=== PATIENT | female | born 1980 | race Caucasian/White ===

== ENCOUNTER 2017-04-14 21:53 | Emergency (ER) | payer BC, OTHER ==
[~2017-04-14] VITALS: Ht 165.1 cm; Wt 104.3 kg
[~2017-04-14 21:53] MED LIST: ACETAMINOPHEN-1 EAC1 PO; ADULT LOW DOSE81 MG PO; AMITRIPTYLINE H25 M2; ATIVAN1 MG PO; BENTYL20 MG PO; CIPRO500 MG PO; CIPROFLOXACIN500 M1 PO; CLONAZEPAM 0.50.5 M1; DEXILANT60 MG PO; FLAGYL500 MG PO; FLEXERIL PO; FLOMAX PO; GABAPENTIN 100100 MG PO; HYDROCODONE-AP1 EAC6 PO; HYDROCODONE-APA1 TA1 PO; IBUPROFEN 800800 M1 PO; IBUPROFEN 800800 MG PO; LAMICTAL XR50 MG; LEVOTHYROXINE 0.1 MG PO; LEVOTHYROXINE0.05 MG; LYRICA 75 MG CA75 MG; MEDROL4 MG PO; MOBIC15 MG PO; MULTIVITAMINS1 EAC7 PO; NAPROSYN500 MG PO; NORCO 5-325 TA1 EACH PO; NORFLEX100 MG PO; OMEPRAZOLE 20 M20 MG; OMEPRAZOLE40 MG; ONDANSETRON HCL4 M2 PO; PERCOCET 10-321 EACH PO; PERCOCET 5-3251 EACH PO; PHENERGAN 25 MG25 M1 PO; PHENERGAN 25 MG25 MG PO; PRILOSEC 10MG C10 M1 PO; PROZAC10 MG; PROZAC20 M1 PO; PROZAC40 MG PO; ROBAXIN500 MG PO; TRAMADOL 50 MG50 MG PO; ULTRAM 50MG TAB50 MG PO; VICODIN 5-5001 EACH PO; VOLTAREN GEL 1100 G2 TOP; ZANAFLEX4 MG PO; ZOFRAN ODT4 MG PO; ZOFRAN4 MG PO; ZONEGRAN100 MG
[2017-04-14 21:59] VITALS: BP 123/80
[2017-04-14] MEDS ORDERED: TRAMADOL 50 MG50 MG PO (22:13)
[2017-04-14] MEDS ORDERED: IBUPROFEN 800800 M1 PO (22:13)
[2017-04-14] MEDS ORDERED: SSD CREAM 1% 5050 GM TOP (22:13)
== END 2017-04-14 22:30 | disposition home or self-care (01) ==
LOC: M.ERS 21:53
DX: T20.07XA Burn of unspecified degree of neck, initial encounter (principal); T31.0 Burns involving less than 10% of body surface; F41.0 Panic disorder [episodic paroxysmal anxiety]; K21.9 Gastro-esophageal reflux disease without esophagitis; G62.9 Polyneuropathy, unspecified; Z90.49 Acquired absence of other specified parts of digestive tract; Z87.442 Personal history of urinary calculi; Z88.1 Allergy status to other antibiotic agents; Z88.8 Allergy status to other drugs, medicaments and biological substances; Z77.22 Contact with and (suspected) exposure to environmental tobacco smoke (acute) (chronic); X16.XXXA Contact with hot heating appliances, radiators and pipes, initial encounter; Y93.89 Activity, other specified; Y92.89 Other specified places as the place of occurrence of the external cause; Y99.8 Other external cause status

== ENCOUNTER → 2017-12-08 | Outpatient (CLI) | payer BC, OTHER ==
[~2017-12-08] MED LIST changes: +FENOFIBRATE160 MG PO; +QUDEXY XR100 MG PO; +ROBAXIN 750 MG750 M1 PO; +SSD CREAM 1% 5050 GM TOP
== END ==
LOC: M.RAD 10:44
DX: M25.511 Pain in right shoulder (principal); M25.551 Pain in right hip; R10.11 Right upper quadrant pain; R07.9 Chest pain, unspecified; M54.2 Cervicalgia; M43.22 Fusion of spine, cervical region; V89.2XXA Person injured in unspecified motor-vehicle accident, traffic, initial encounter; Z90.49 Acquired absence of other specified parts of digestive tract; Z72.89 Other problems related to lifestyle; Z88.8 Allergy status to other drugs, medicaments and biological substances

== ENCOUNTER 2018-01-23 16:05 | Emergency (ER) | payer BC, OTHER ==
[~2018-01-23] VITALS: Ht 165.1 cm; Wt 111.1 kg
[~2018-01-23 16:05] MED LIST changes: -FENOFIBRATE160 MG PO; -QUDEXY XR100 MG PO; -ROBAXIN 750 MG750 M1 PO
[2018-01-23] MEDS ORDERED: QUDEXY XR100 MG PO (16:23)
[2018-01-23] MEDS ORDERED: FENOFIBRATE160 MG PO (16:23)
[2018-01-23] MEDS ORDERED: ROBAXIN 750 MG750 M1 PO (16:58)
[2018-01-23 17:07] VITALS: BP 149/89
== END 2018-01-23 17:08 | disposition home or self-care (01) ==
LOC: M.ERS 16:05
DX: S46.911A Strain of unspecified muscle, fascia and tendon at shoulder and upper arm level, right arm, initial encounter (principal); X58.XXXA Exposure to other specified factors, initial encounter; Y93.89 Activity, other specified; Y92.89 Other specified places as the place of occurrence of the external cause; Y99.8 Other external cause status; K21.9 Gastro-esophageal reflux disease without esophagitis; Z90.49 Acquired absence of other specified parts of digestive tract; Z77.22 Contact with and (suspected) exposure to environmental tobacco smoke (acute) (chronic); Z88.1 Allergy status to other antibiotic agents; Z88.8 Allergy status to other drugs, medicaments and biological substances

== ENCOUNTER 2019-08-20 19:27 | Emergency (ER) | payer OTHER ==
[~2019-08-20] VITALS: Ht 165.1 cm; Wt 108.9 kg
[~2019-08-20 19:27] MED LIST changes: +FENOFIBRATE160 MG PO; +QUDEXY XR100 MG PO; +ROBAXIN 750 MG750 M1 PO
[2019-08-20] MEDS ORDERED: SEVELLA PO (20:07)
[2019-08-20] MEDS ORDERED: TRAMADOL 50 MG50 MG PO (21:42)
[2019-08-20 22:02] VITALS: BP 135/101
== END 2019-08-20 22:03 | disposition home or self-care (01) ==
LOC: M.ERS 19:27
DX: S93.602A Unspecified sprain of left foot, initial encounter (principal); K21.9 Gastro-esophageal reflux disease without esophagitis; F41.0 Panic disorder [episodic paroxysmal anxiety]; Z90.89 Acquired absence of other organs; Z90.49 Acquired absence of other specified parts of digestive tract; Z87.442 Personal history of urinary calculi; Z88.1 Allergy status to other antibiotic agents; Z88.8 Allergy status to other drugs, medicaments and biological substances; W10.9XXA Fall (on) (from) unspecified stairs and steps, initial encounter; Y93.01 Activity, walking, marching and hiking; Y92.89 Other specified places as the place of occurrence of the external cause; Y99.8 Other external cause status

== ENCOUNTER → 2019-09-13 | Outpatient (CLI) | payer OTHER ==
[~2019-09-13] MED LIST changes: +SEVELLA PO
[2019-09-13 10:54] LABS: ABSOLUTE BASOPHILS 0.1 thou/uL (0.0-0.2); ABSOLUTE EOSINOPHILS 0.3 thou/uL (0.0-0.7); ABSOLUTE LYMPHOCYTES 2.6 thou/uL (0.8-5.3); ABSOLUTE MONOCYTES 0.4 thou/uL (0.0-1.2); ABSOLUTE NEUTROPHILS 4.1 thou/uL (1.6-8.1); EOSINOPHILS 3.4 %; HEMATOCRIT 42.1 % (37.0-47.0); HEMOGLOBIN 14.5 gm/dL (12.0-15.0); LYMPHOCYTES 35.4 %; MCHC 34.5 g/dL (28.0-37.0); MONOCYTES 5.6 %; MPV 8.3 fl. (7.2-11.1); NUCLEATED RBCS 0 /100WBC; PLATELET COUNT* 334 thou/uL (150-400); POLYS 54.6 %; RBC 4.68 mil/uL (4.20-5.00); RDW-CV 12.7 % (10.5-14.5); WBC 7.5 thou/uL (4.0-11.0)
[2019-09-13 11:03] LABS: ALBUMIN 4.3 g/dL (3.4-5.0); CALCIUM 9.1 mg/dL (8.5-10.1); DIRECT BILIRUBIN 0.1 mg/dL (<0.1-0.3); POTASSIUM 3.9 mmol/L (3.5-5.1); TOTAL BILIRUBIN 0.4 mg/dL (<0.1-1.0)
== END ==
LOC: M.ULTRA 09:59
PROVIDERS: ATTEND Internal Medicine
DX: K76.0 Fatty (change of) liver, not elsewhere classified (principal); Z88.1 Allergy status to other antibiotic agents

== ENCOUNTER 2019-12-22 17:48 | Emergency (ER) | payer OTHER ==
[~2019-12-22] VITALS: Ht 152.4 cm; Wt 101.2 kg
[2019-12-22] MEDS ORDERED: NORCO 5-325 TA1 EAC2 PO (20:37)
[2019-12-22] MEDS ORDERED: IBUPROFEN 800800 M1 PO (20:37)
[2019-12-22 21:02] VITALS: BP 129/91
== END 2019-12-22 21:03 | disposition home or self-care (01) ==
LOC: M.ERS 17:48
DX: S63.591A Other specified sprain of right wrist, initial encounter (principal); M25.521 Pain in right elbow; K21.9 Gastro-esophageal reflux disease without esophagitis; G62.9 Polyneuropathy, unspecified; Z88.1 Allergy status to other antibiotic agents; Z77.22 Contact with and (suspected) exposure to environmental tobacco smoke (acute) (chronic); Z90.49 Acquired absence of other specified parts of digestive tract; Z87.442 Personal history of urinary calculi; W18.39XA Other fall on same level, initial encounter; Y93.89 Activity, other specified; Y92.89 Other specified places as the place of occurrence of the external cause; Y99.8 Other external cause status

== ENCOUNTER 2020-03-09 18:33 | Emergency (ER) | payer OTHER ==
[~2020-03-09] VITALS: Ht 165.1 cm; Wt 104.3 kg
[~2020-03-09 18:33] MED LIST changes: +NORCO 5-325 TA1 EAC2 PO
[2020-03-09] MEDS ORDERED: PROZAC40 MG PO (18:43)
[2020-03-09 18:52] LABS: URINE BILIRUBIN NEGATIVE (Negative); URINE BLOOD 1+ (Negative); URINE CLARITY CLEAR; URINE COLOR YELLOW; URINE GLUCOSE-RANDOM NEGATIVE (Negative); URINE KETONES NEGATIVE (Negative); URINE LEUKOCYTES-REFLEX NEGATIVE (Negative); URINE NITRITE-REFLEX NEGATIVE (Negative); URINE PROTEIN NEGATIVE (Negative); URINE UROBILINOGEN 0.2 E.U./dl (0.2-1.0)
[2020-03-09 18:59] LABS: ABSOLUTE BASOPHILS 0.1 thou/uL (0.0-0.2); ABSOLUTE EOSINOPHILS 0.3 thou/uL (0.0-0.7); ABSOLUTE MONOCYTES 0.5 thou/uL (0.0-1.2); ABSOLUTE NEUTROPHILS 4.4 thou/uL (1.6-8.1); BASOPHILS 0.7 %; EOSINOPHILS 3.6 %; HEMATOCRIT 40.5 % (37.0-47.0); HEMOGLOBIN 13.7 gm/dL (12.0-15.0); LYMPHOCYTES 36.4 %; MCH 29.7 pg (26.0-34.0); MCHC 33.8 g/dL (28.0-37.0); MCV 87.9 fL (80.0-100.0); MONOCYTES 6.4 %; MPV 7.7 fl. (7.2-11.1); NUCLEATED RBCS 0 /100WBC; PLATELET COUNT* 312 thou/uL (150-400); POLYS 52.9 %; RDW-CV 12.9 % (10.5-14.5); WBC 8.3 thou/uL (4.0-11.0)
[2020-03-09 19:00] LABS: SQUAMOUS >10 Many /LPF (0-3)
[2020-03-09 19:01] LABS: URINE RBC 0-2 Rare /HPF (0-2); URINE WBC-REFLEX 0-5 Rare /HPF (0-5)
[2020-03-09 19:02] LABS: BACTERIA-REFLEX 1-9 Few /HPF (None Seen); CASTS None Seen /LPF (None Seen); CRYSTALS None Seen /LPF (None Seen); MUCUS 0-3 Light strn/LPF (None Seen)
[2020-03-09 19:06] LABS: CALCIUM 9.2 mg/dL (8.5-10.1); CREATININE 0.9 mg/dL (0.6-1.3); POTASSIUM 3.5 mmol/L (3.5-5.1)
[2020-03-09 19:11] LABS: ALBUMIN 3.9 g/dL (3.4-5.0); TOTAL BILIRUBIN 0.2 mg/dL (<0.1-1.0); TOTAL PROTEIN 7.4 g/dL (6.4-8.2)
[2020-03-09] MEDS ORDERED: ZOFRAN ODT4 MG DISSOLVE (20:36)
[2020-03-09] MEDS ORDERED: NORCO 5-325 TA1 EAC2 PO (20:36)
[2020-03-09] MEDS ORDERED: AUGMENTIN 875-1 EACH PO (20:36)
[2020-03-09 20:52] VITALS: BP 117/73
== END 2020-03-09 20:52 | disposition home or self-care (01) ==
LOC: M.ERS 18:33
PROVIDERS: Physician Assistant
DX: K52.9 Noninfective gastroenteritis and colitis, unspecified (principal); K21.9 Gastro-esophageal reflux disease without esophagitis; G62.9 Polyneuropathy, unspecified; Z77.22 Contact with and (suspected) exposure to environmental tobacco smoke (acute) (chronic); Z88.1 Allergy status to other antibiotic agents; Z88.8 Allergy status to other drugs, medicaments and biological substances; Z90.49 Acquired absence of other specified parts of digestive tract; Z87.442 Personal history of urinary calculi

== ENCOUNTER → 2020-10-27 | Outpatient (CLI) | payer OTHER ==
[~2020-10-27] MED LIST changes: +AUGMENTIN 875-1 EACH PO; +ZOFRAN ODT4 MG DISSOLVE
== END ==
LOC: M.ULTRA 10:27
PROVIDERS: ATTEND Internal Medicine
DX: R10.2 Pelvic and perineal pain (principal); R11.0 Nausea